=== PATIENT | male | born 1990 ===

== ENCOUNTER 2020-09-14 17:06 | Emergency (ER) | payer SELFPAY ==
[2020-09-14 17:55] VITALS: BP 111/83; PULSE 98; RESP 18; TEMP 36.8; O2SAT 98
[2020-09-14 18:22] VITALS: BP 111/83; PULSE 84; RESP 18; TEMP 36.8; O2SAT 98; BMI 36.9
--- NOTE | 2020-09-14 18:22 | ED.SKABFB ---
HPI - Skin/Abscess/Foreign Bdy General Chief complaint: Skin/Abscess/Foreign Body Stated complaint: Abscess Time Seen by Provider: 09/14/20 18:22 Source: patient Mode of arrival: ambulatory Limitations: no limitations History of Present Illness HPI narrative: Patient is a 30-year-old male with a past medical history of previous abscesses, presents today complaining of an abscess on his right groin that is been there for a few days. He has tried putting warm compresses on it and said it is was starting to leak but is still intact. Denies fever chills. After discussion including how incision and drainage is the gold standard treatment for an abscess, patient is refusing an I&D, nursing was in the room for the conversation, he is asking for strictly antibiotics but says he will continue to use warm compresses and try to express at home. Related Data Allergies Allergy/AdvReac Type Severity Reaction Status Date / Time No Known Allergies Allergy Verified 09/14/20 18:22 [No Known Allergies*] Review of Systems Review of Systems: Yes all other systems are reviewed and are negative PMFSH Past Medical History Medical History (Updated 09/14/20 @ 18:24 by Aria Ruiz) Asthma Social History Social History Advance Directives: No Advance Directives Information Provided: No Physical Exam Vital Signs: Vital Signs: Vital Signs Temp Pulse Resp BP Pulse Ox 09/14/20 17:55 98.2 F 98 18 111/83 98 Const: General: cooperative, healthy appearing, comfortable and no acute distress Orientation/consciousness: patient oriented x3 Eyes: General: appearance normal, both eyes and all related structures Neck: Neck: Yes normal visual inspection Resp: Effort & Inspection: normal respiratory effort and able to speak in complete sentences Skin: General skin exam: other ( 3 cm x 2cm fluctuant abscess on right groin area, no cellulitis noted) Lesions: lesion noted Rashes: no rashes Trauma: no lacerations or abrasions Neuro: General: patient oriented x3
== END 2020-09-14 19:12 | disposition home or self-care (01) ==
PROVIDERS: Emergency Provider Emergency Medicine
DX: L02.214 Cutaneous abscess of groin (principal)
CPT/HCPCS: 99283

== ENCOUNTER 2020-12-14 09:56 | Emergency (ER) | payer SELFPAY ==
[2020-12-14 10:12] VITALS: BP 112/68; PULSE 77; RESP 16; TEMP 36.9; O2SAT 99; BMI 35.6
--- NOTE | 2020-12-14 10:17 | XR_ITS ---
EXAMINATION: XR TIBIA AND FIBULA, LEFT CLINICAL INFORMATION: Infection. Possible osteomyelitis. COMPARISON: None TECHNIQUE: AP x2 and lateral x2 views of the left lower leg are obtained for a total of 4 views. FINDINGS: There is no fracture or dislocation. The bony mineralization appears normal. There is no destructive process or periostitis. There is no gas tracking in the soft tissues. There are 3 coarse calcifications in the soft tissues just anterior to the mid lower leg on lateral view. XR/XR tibia fibula LT 2V IMPRESSION: No bony destructive process. No periostitis.
[2020-12-14] MEDS: cephALEXin 500 MG CAPSULE PO (10:26)
[2020-12-14] MEDS: Lidocaine HCl 1 % MPF 5 ML VIAL SUBCUT ×2 (11:29)
--- NOTE | 2020-12-14 12:27 | PC.NURSE ---
monster ron in to assess, perform i&d, pack wound, rn applied gauze/gauze wrap to area and sent routine cx for testing
--- NOTE | 2020-12-14 12:29 | ED.LOWEXIN ---
HPI - Extremity Injury (Lower) General Chief Complaint: Extremity Injury, Lower Stated Complaint: leg injury Time Seen by Provider: 12/14/20 10:17 History of Present Illness HPI Narrative: Patient complains of left lower leg redness pain swelling after hitting it with an object at home 3 days ago, started with redness then now has developed into of painful swollen area, no fever no chills Related Data Previous Rx's Medication Instructions Recorded cephalexin [Keflex] 500 mg PO TID 7 Days #21 cap 09/14/20 cephalexin [Keflex] 500 mg PO QID 7 Days #28 cap 12/14/20 doxycycline hyclate 100 mg PO BID 7 Days #14 cap 12/14/20 ibuprofen 600 mg PO Q6H PRN #20 tab 12/14/20 oxycodone-acetaminophen [Percocet] 1 tab PO Q6H PRN #10 tab 12/14/20 Allergies Allergy/AdvReac Type Severity Reaction Status Date / Time No Known Allergies Allergy Verified 09/14/20 18:22 [No Known Allergies*] Review of Systems Review of Systems: No fever no chills no dizziness no weakness no shortness of breath no chest pain no nausea no vomiting no posterior leg pain no calf pain no calf swelling Yes all other systems are reviewed and are negative PMFSH Past Medical History Source: nursing notes reviewed Medical History Asthma Social History Social History Smoked in Last 30 Days: No Use of substances other than those prescribed or required for medical reasons: Yes Substance Use Type: Marijuana Substance Use Frequency: Daily Last Used Substance: Hours (ago) Any prior treatment program specific to substance use: No Advance Directives: No Advance Directives Information Provided: No Physical Exam Vital Signs: Vital Signs: Last Vital Signs Temp 98.5 F 12/14/20 10:12 Pulse 77 12/14/20 10:12 Resp 16 12/14/20 10:12 BP 112/68 12/14/20 10:12 Pulse Ox 99 12/14/20 10:12 Body Mass Index 35.6 General appearance is no acute distress, comfortable relaxed and cooperative Head is normocephalic atraumatic Neck is supple Respiratory no distress Extremities the left pretibial area midway between knee and ankle anterior lower leg has a an area of fluctuance tenderness and redness, no lymphangitis, no discharge from wound, knee and ankle are fully mobile with full range of motion and patient can bear weight easily, neurovascular intact distal Other extremities are normal Neuro no focal deficit Course Course Course Narrative: Procedure note for left leg abscess Left lower leg area of cellulitis with central abscess in the pretibial area of the leg is cleansed with Betadine Anesthesia is 10 cc of 1% lidocaine A small incision was made with copious pus expressed from the area and decompression of the swelling Area was probed with forceps for loculations and packing was placed Dressing was applied Discharge Plan Discharge Clinical Impression: Abscess Cellulitis Qualifiers: Site of cellulitis: extremity Site of cellulitis of extremity: lower extremity Laterality: left Qualified Code(s): L03.116 - Cellulitis of left lower limb Patient Disposition: Home, Self-Care Additional Instructions: Return to ER in 2 days for wound check and packing removal Return any time for worse pain and swelling, spreading redness, fever, any sign of worse infection or any concerns Prescriptions: New doxycycline hyclate 100 mg capsule 100 mg PO BID 7 Days Qty: 14 RF: 0 ibuprofen 600 mg tablet 600 mg PO Q6H PRN (Reason: pain) Qty: 20 RF: 0 cephalexin [Keflex] 500 mg capsule 500 mg PO QID 7 Days Qty: 28 RF: 0 oxycodone-acetaminophen [Percocet] 5-325 mg tablet 1 tab PO Q6H PRN (Reason: pain) Qty: 10 RF: 0 No Action cephalexin [Keflex] 500 mg capsule 500 mg PO TID 7 Days Qty: 21 RF: 0 Stand Alone Forms: Work/School Release
== END 2020-12-14 12:35 | disposition home or self-care (01) ==
PROVIDERS: Emergency Provider Emergency Medicine Emergency Medical Services
DX: L03.116 Cellulitis of left lower limb (principal); S80.812A Abrasion, left lower leg, initial encounter; M79.662 Pain in left lower leg; F12.90 Cannabis use, unspecified, uncomplicated; Z79.899 Other long term (current) drug therapy; Z23 Encounter for immunization
CPT/HCPCS: 73590; 87071; 87147; 87205; 90471; 90715; 99283; 99284

== ENCOUNTER 2021-12-08 19:35 | Emergency (ER) | payer OTHER, SELFPAY ==
--- NOTE | ~2021-12-08 | XR_ITS ---
EXAMINATION: XR HAND, RIGHT CLINICAL INFORMATION: Injury to the second digit. COMPARISON: None TECHNIQUE: Three views of the right hand. FINDINGS: There is a small chip fracture of the distal tuft of the distal phalange of the index finger. Fracture fragment measures approximately 4 x 2 mm and is displaced radially. Fracture fragment is from the ulnar tip of the bone. XR/XR hand RT 2V IMPRESSION: Fracture of the distal tuft of the distal phalange of the index finger.
[2021-12-08 19:38] VITALS: BP 123/70; PULSE 68; RESP 18; TEMP 35.9; O2SAT 97; BMI 33.3
--- NOTE | 2021-12-08 21:02 | ED.WOUNDLAC ---
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 finger between the belt and julisa just prior to arrival came with laceration of the distal part of the right index finger Related Data Previous Rx's Medication Instructions Recorded cephalexin 500 mg capsule (Keflex) 500 mg PO TID 7 Days #21 cap 09/14/20 cephalexin 500 mg capsule (Keflex) 500 mg PO QID 7 Days #28 cap 12/14/20 doxycycline hyclate 100 mg capsule 100 mg PO BID 7 Days #14 cap 12/14/20 ibuprofen 600 mg tablet 600 mg PO Q6H PRN #20 tab 12/14/20 oxycodone-acetaminophen 5 mg-325 1 tab PO Q6H PRN #10 tab 12/14/20 mg tablet (Percocet) amoxicillin 875 mg-potassium 1 tab PO BID #20 tab 12/08/21 clavulanate 125 mg tablet (Augmentin) ibuprofen 600 mg tablet 600 mg PO Q6H PRN #20 tab 12/08/21 Allergies Allergy/AdvReac Type Severity Reaction Status Date / Time No Known Allergies Allergy Verified 09/14/20 18:22 [No Known Allergies*] Review of Systems Review of Systems: Yes all other systems are reviewed and are negative PMFSH Past Medical History Medical History Asthma Social History Social History Substance Use Type: Marijuana Advance Directives: No Advance Directives Information Provided: Yes Physical Exam Vital Signs: Vital Signs: Last Vital Signs Temp 96.7 F L 12/08/21 19:38 Pulse 68 12/08/21 19:38 Resp 18 12/08/21 19:38 BP 123/70 12/08/21 19:38 Pulse Ox 97 12/08/21 19:38 BMI result Body Mass Index 33.3 Const: General: no acute distress and well developed Extrem: Hand/finger images: 1. Deep laceration at the base of distal phalanx of right index finger sensation intact flexion of distal phalanx is normal unable to dorsiflex the distal phalanx MDM - Wound/Laceration MDM Narrative Medical decision making narrative: Patient deep laceration with likely laceration extensor digitorum superficialis with fracture of the distal phalanx laceration was sutured advised to follow-up with hand surgeon Imaging Data r hand xray: Radiologist's impression: XR/XR hand RT 2V IMPRESSION: Fracture of the distal tuft of the distal phalange of the index finger. Procedures Laceration Laceration 1: Site: hand (Right index finger) Side (If applicable): right Description: linear Depth: simple, single layer Local Anesthetic: lidocaine 1% Amount of anesthesia used (mL): 5 Pre-repair: wound explored, irrigated extensively and deep structures intact Skin layer closed with: nylon Size (cm): 5-0 Number of sutures: 15 Technique: simple, interrupted Discharge Plan Discharge Clinical Impression: Laceration Patient Disposition: Home, Self-Care Instructions: Finger Laceration (ED) Additional Instructions: Local care as advised Suture removal in 10 days Antibiotic as advised to avoid infection Report to the ER if increased pain / swelling of the finger Prescriptions: New amoxicillin-pot clavulanate [Augmentin] 875-125 mg tablet 1 tab PO BID Qty: 20 RF: 0 ibuprofen 600 mg tablet 600 mg PO Q6H PRN (Reason: pain) Qty: 20 RF: 0 No Action cephalexin [Keflex] 500 mg capsule 500 mg PO TID 7 Days Qty: 21 RF: 0 doxycycline hyclate 100 mg capsule 100 mg PO BID 7 Days Qty: 14 RF: 0 ibuprofen 600 mg tablet 600 mg PO Q6H PRN (Reason: pain) Qty: 20 RF: 0 cephalexin [Keflex] 500 mg capsule 500 mg PO QID 7 Days Qty: 28 RF: 0 oxycodone-acetaminophen [Percocet] 5-325 mg tablet 1 tab PO Q6H PRN (Reason: pain) Qty: 10 RF: 0 Interventions: ED Discharge Assessment Last Done: 12/08/21 21:25 Discharge Date/Time: 12/08/21 21:28
[2021-12-08] MEDS: Ibuprofen 600 MG TABLET PO (21:08)
[2021-12-08] MEDS: Amoxicillin/Potassium Clav 875 MG TABLET PO (21:08)
== END 2021-12-08 21:28 | disposition home or self-care (01) ==
PROVIDERS: Emergency Provider Internal Medicine
DX: S61.210A Laceration without foreign body of right index finger without damage to nail, initial encounter (principal); S62.660B Nondisplaced fracture of distal phalanx of right index finger, initial encounter for open fracture; W24.1XXA Contact with transmission devices, not elsewhere classified, initial encounter; Y93.89 Activity, other specified; Y92.513 Shop (commercial) as the place of occurrence of the external cause; Y99.0 Civilian activity done for income or pay
CPT/HCPCS: 12002; 73120; 99284

== ENCOUNTER 2021-12-16 19:58 | Emergency (ER) | payer OTHER, SELFPAY ==
[2021-12-16 20:09] VITALS: BP 112/57; PULSE 80; TEMP 36.4; O2SAT 98; BMI 33.6
--- NOTE | 2021-12-16 20:39 | ED.GENADULT ---
HPI - General Adult General Chief complaint: Extremity Problem Stated complaint: removal of stitches Time Seen by Provider: 12/16/21 20:39 Source: patient Mode of arrival: ambulatory Limitations: no limitations History of Present Illness HPI narrative: 31-year-old male presents to the emergency department for suture removal, he tells me has 15 sutures to his right index finger, got them placed a week ago. No fevers, chills or signs of infection, sensation and motor intact. Patient has four days of Augmentin left. 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 It appears as though this was a large laceration and required many sutures for repair. Patient tells me that the area looks significantly better. Onset (ago): day(s) (7) Location: upper extremity (Right index finger.) Radiation: non-radiation Severity: moderate Relieving factors: none Exacerbating factors: none Associated symptoms: denies other symptoms Treatments prior to arrival: none Related Data Previous Rx's Medication Instructions Recorded cephalexin 500 mg capsule (Keflex) 500 mg PO TID 7 Days #21 cap 09/14/20 cephalexin 500 mg capsule (Keflex) 500 mg PO QID 7 Days #28 cap 12/14/20 doxycycline hyclate 100 mg capsule 100 mg PO BID 7 Days #14 cap 12/14/20 ibuprofen 600 mg tablet 600 mg PO Q6H PRN #20 tab 12/14/20 oxycodone-acetaminophen 5 mg-325 1 tab PO Q6H PRN #10 tab 12/14/20 mg tablet (Percocet) amoxicillin 875 mg-potassium 1 tab PO BID #20 tab 12/08/21 clavulanate 125 mg tablet (Augmentin) ibuprofen 600 mg tablet 600 mg PO Q6H PRN #20 tab 12/08/21 amoxicillin 875 mg-potassium 1 tab PO BID 4 Days #8 tab 12/16/21 clavulanate 125 mg tablet (Augmentin) Allergies Allergy/AdvReac Type Severity Reaction Status Date / Time No Known Allergies Allergy Verified 09/14/20 18:22 [No Known Allergies*] Review of Systems Review of Systems: Constitutional : No Fever, No Chills, Cardiovascular : No Chest Pain, No SOB Respiratory : No Dyspnea Gastrointestinal : No abdominal pain Musculoskeletal : No Joint Swelling Skin : No rash, + skin laceration Neuro : No Weakness, No Numbness Psych : No SI/HI Yes all other systems are reviewed and are negative [facility] Past Medical History Attestation statement: The following information was validated with the patient. Source: old records reviewed and nursing notes reviewed Medical History Asthma Social History Social History Substance Use Type: Marijuana Advance Directives: No Physical Exam Vital Signs: Vital Signs: Last Vital Signs Temp 97.6 F 12/16/21 20:09 Pulse 80 12/16/21 20:09 BP 112/57 L 12/16/21 20:09 Pulse Ox 98 12/16/21 20:09 BMI result Body Mass Index 33.6 VSS Appearance: Alert.? Oriented X3.? No acute distress.? Head: Normocephalic, atraumatic, no step-offs or deformities Eyes: Pupils equal, round and reactive to light.? ENT: Pharynx normal.? Neck: Normal inspection.? Neck supple.? CVS: Normal heart rate and rhythm.? Pulses normal.? Respiratory: No respiratory distress.? Breath sounds normal.? Abdomen: Soft and nontender.? Skin: Skin warm and dry.? Normal skin color.? Normal skin turgor.? Extremities: No lower extremity edema.? No calf ttp. 5/5 strength to bilateral upper and lower extremities + nicely healed laceration to the right index finger, no overlying skin changes, no signs of acute infection, no cellulitis or purulent discharge from the area. No pain with flexion or extension of b/l fingers and or wrists. + Swollen right index finger. Back: No midline tenderness, no C-spine tenderness, full range of motion, no CVA tenderness bilaterally Neuro: Oriented X 3.? No motor deficit.? No sensory deficit. Course Reevaluation(s) Reevaluation #1: I successfully removed 13 sutures from the right index finger however I left 2 sutures in when I removed 2 sutures from the ventral aspect of the hand it appeared as though the wound was starting to dehice, so I decided to leave the remaining to in. I will place some Dermabond to the area. Sensation and motor intact. He should follow up with Ortho/Hand surgeon. Dr. Jimenez, recommends placing the patient's finger in a splint. I have also reached out to Shavon SALVADOR. Time: 20:44 Reevaluation #2: TT Shavon, who also agrees with me that this does not appear to be infected however, does require prompt follow-up by Orthopedics/Hand surgeon. I have made this very clear to the patient and have given him information about discharge. This is likely poor wound healing. History and physical examination not consistent with tenosynovitis. Wound does not appear to be infected. Patient tells me he will follow up with Orthopedics/Hand surgery tomorrow or the day after. Time: 21:20 Medical Decision Making MDM Narrative Medical decision making narrative: 2042 31-year-old male presents to the emergency department for suture removal, he had 15 sutures history is right index finger about a week ago. No signs of infection. No complaints. Physical exam shows proper wound healing to the right index finger, with good sensation and motor to bilateral upper extremities in all fingers. Capillary refill less than 2 seconds. No signs of infection. Plan at this time is to remove 15 sutures. Medical Records Medical records reviewed: Yes I reviewed the patient's medical records. Lab Data Lab results reviewed: Yes I reviewed the patient's lab results. Critical Care Time Critical Care Time Critical Care Time: No Discharge Plan Discharge Clinical Impression: Encounter for removal of sutures Patient Disposition: Home, Self-Care Instructions: Stitches Removal (ED) Additional Instructions: Follow-up with Orthopedics or Hand tomorrow! This is very important. Take your medications as prescribed. Please finish antibiotics and do not miss any doses. Follow-up with your primary care provider this week. Return to the emergency department with new or worsening symptoms. Return with any signs of infection such as fevers, chills overlying skin changes or drainage from the site. Please follow-up with your primary care provider for evaluation of wound. In case of emergency call 911 Prescriptions: New amoxicillin-pot clavulanate [Augmentin] 875-125 mg tablet 1 tab PO BID 4 Days Qty: 8 RF: 0 No Action cephalexin [Keflex] 500 mg capsule 500 mg PO TID 7 Days Qty: 21 RF: 0 doxycycline hyclate 100 mg capsule 100 mg PO BID 7 Days Qty: 14 RF: 0 ibuprofen 600 mg tablet 600 mg PO Q6H PRN (Reason: pain) Qty: 20 RF: 0 cephalexin [Keflex] 500 mg capsule 500 mg PO QID 7 Days Qty: 28 RF: 0 oxycodone-acetaminophen [Percocet] 5-325 mg tablet 1 tab PO Q6H PRN (Reason: pain) Qty: 10 RF: 0 amoxicillin-pot clavulanate [Augmentin] 875-125 mg tablet 1 tab PO BID Qty: 20 RF: 0 ibuprofen 600 mg tablet 600 mg PO Q6H PRN (Reason: pain) Qty: 20 RF: 0 Referrals: Luis Manuel Harmon MD [Physician] - 2 days Physician,None [Primary Care Provider] - 2 days Ermelinda Anderson MD [Physician] - 1 day Stand Alone Forms: Work/School Release
== END 2021-12-16 21:35 | disposition home or self-care (01) ==
PROVIDERS: Emergency Provider Internal Medicine
DX: Z48.02 Encounter for removal of sutures (principal); Z79.899 Other long term (current) drug therapy
CPT/HCPCS: 99283

== ENCOUNTER 2021-12-19 08:43 | Outpatient (REF) | payer OTHER, SELFPAY ==
--- NOTE | ~2021-12-19 | XR_ITS ---
EXAMINATION: XR hand RT min 3V CLINICAL INFORMATION: Pain COMPARISON: Hand radiographs 12/08/2021 TECHNIQUE: 3 views of the hand XR/XR hand RT min 3V FINDINGS/IMPRESSION: Redemonstration of the transversely oriented displaced fracture of the tuft of the second distal phalanx, which appears minimally more displaced when compared with priors. No periosteal reaction or bony callus formation. Joint spaces are maintained. No cortical erosion. Soft tissue swelling is noted about the second digit.
== END 2021-12-19 08:44 | disposition home or self-care (01) ==
LOC: HO.HOSX 08:43
PROVIDERS: Visit Provider Orthopaedic Surgery
DX: M79.641 Pain in right hand (principal); S62.630B Displaced fracture of distal phalanx of right index finger, initial encounter for open fracture; S63.632A Sprain of interphalangeal joint of right middle finger, initial encounter; W31.89XA Contact with other specified machinery, initial encounter; Y93.89 Activity, other specified; Y92.59 Other trade areas as the place of occurrence of the external cause; Y99.8 Other external cause status; J45.909 Unspecified asthma, uncomplicated
CPT/HCPCS: 73130; 99202

== ENCOUNTER → 2021-12-26 13:10 | Outpatient (BNVA) | payer OTHER, SELFPAY | PROVIDERS: Visit Provider Physician Assistant | DX: S61.310D Laceration without foreign body of right index finger with damage to nail, subsequent encounter (principal) | CPT/HCPCS: 99212 ==

== ENCOUNTER 2023-03-10 10:54 | Emergency (ER) | payer SELFPAY ==
--- NOTE | 2023-03-10 11:10 | ED.LOWEXIN ---
HPI - Extremity Injury (Lower) General Chief Complaint: Skin/Abscess/Foreign Body Stated Complaint: R ankle swelling Time Seen by Provider: 03/10/23 11:15 Source: patient Mode of arrival: ambulatory Limitations: no limitations History of Present Illness HPI Narrative: 32 yo male presents to the ER for evaluation of right lower leg redness and swelling that he noticed 3 days ago. 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 He states the area proximal to his ankle is red and warm, it has become more swollen. No known bites or other trauma. No ankle pain or swelling. No fevers. He reports pain with palpation and ambulation. MD complaint: leg injury Onset (ago): day(s) (3) Type of Injury: unknown Place: work Severity: moderate Relieving factors: rest Exacerbating factors: weight bearing and palpation Associated symptoms: swelling, ambulatory and other (erythema and warmth) Other symptoms: none Related Data Previous Rx's Medication Instructions Recorded cephalexin 500 mg capsule (Keflex) 500 mg PO TID 7 days #21 caps 09/14/20 cephalexin 500 mg capsule (Keflex) 500 mg PO QID 7 days #28 caps 12/14/20 doxycycline hyclate 100 mg capsule 100 mg PO BID 7 days #14 caps 12/14/20 ibuprofen 600 mg tablet 600 mg PO Q6H PRN pain #20 tabs 12/14/20 oxycodone-acetaminophen 5 mg-325 1 tab PO Q6H PRN pain #10 tabs 12/14/20 mg tablet (Percocet) amoxicillin 875 mg-potassium 1 tab PO BID #20 tabs 12/08/21 clavulanate 125 mg tablet (Augmentin) ibuprofen 600 mg tablet 600 mg PO Q6H PRN pain #20 tabs 12/08/21 amoxicillin 875 mg-potassium 1 tab PO BID 4 days #8 tabs 12/16/21 clavulanate 125 mg tablet (Augmentin) cephalexin 500 mg capsule 500 mg PO Q6H 7 days #28 caps 03/10/23 doxycycline monohydrate 100 mg 100 mg PO BID #14 caps 03/10/23 capsule Allergies Allergy/AdvReac Type Severity Reaction Status Date / Time No Known Allergies Allergy Verified 12/19/21 12:25 [No Known Allergies*] Review of Systems Review of Systems: Yes all other systems are reviewed and are negative [facility] Past Medical History Medical History Asthma Social History Social History (Updated 12/26/21 @ 13:23 by Mundo Moody) Substance Use Type: Marijuana Advance Directives: No Advance Directives Information Provided: Yes Current occupational status: employed Current occupation: [employer] Physical Exam Vital Signs: Vital Signs: Last Vital Signs Temp 98.3 F 03/10/23 11:11 Pulse 80 03/10/23 11:11 Resp 18 03/10/23 11:11 BP 122/84 03/10/23 11:11 Pulse Ox 98 03/10/23 11:11 O2 Del Method Room Air 03/10/23 11:11 BMI result Body Mass Index 33.6 Appearance: Alert. Oriented X3. No acute distress. HEENT: normal inspection CVS: Normal heart rate and rhythm. Pulses normal. Respiratory: No respiratory distress. Skin: Skin warm and dry. Normal skin color. Normal skin turgor. No rashes. Extremities: right lower extremity with erythema, warmth and tenderness to the distal lower leg, no ankle involvement. no calf tenderness or swelling. Neuro: Oriented X 3. No motor deficit. No sensory deficit. Medical Decision Making Medical Decision Making MDM Narrative: 32 yo male presenting to the ER with RLE redness, swelling and pain x3 days. No specific trauma. Exam and clinical presentation are consistent with cellulitis. No clinical evidence of DVT, area is not circumfrential. Will start on abx and have him f/u with PCP. Stable for d/c home. Differential Diagnosis Differential Diagnoses: The differential diagnosis associated with the presentation includes cellulitis, bug bite, Lyme, trauma, less likely DVT, thrombbophelbitis Prescription Management I considered prescription management with: Pain Medication and Antibiotic Critical Care Time Critical Care Time Critical Care Time: No Discharge Plan Discharge Clinical Impression: Cellulitis Patient Disposition: Home, Self-Care Instructions: Cellulitis (DC) Additional Instructions: Take the prescribed antibiotics as directed, complete the entire course and do not miss any doses. Use warm compresses several times per day and elevate your leg If your redness and warmth are getting worse despite 2 days of antibiotics, come back to the ER for further evaluation. Follow up with your doctor Prescriptions: New cephalexin 500 mg capsule 500 mg PO Q6H 7 Days Qty: 28 0RF doxycycline monohydrate 100 mg capsule 100 mg PO BID Qty: 14 0RF No Action cephalexin [Keflex] 500 mg capsule 500 mg PO TID 7 Days Qty: 21 0RF doxycycline hyclate 100 mg capsule 100 mg PO BID 7 Days Qty: 14 0RF ibuprofen 600 mg tablet 600 mg PO Q6H PRN (Reason: pain) Qty: 20 0RF cephalexin [Keflex] 500 mg capsule 500 mg PO QID 7 Days Qty: 28 0RF oxycodone-acetaminophen [Percocet] 5-325 mg tablet 1 tab PO Q6H PRN (Reason: pain) Qty: 10 0RF Rx Instructions: Narcotic may cause drowsiness, no driving for 6 hours after taking, home use only amoxicillin-pot clavulanate [Augmentin] 875-125 mg tablet 1 tab PO BID Qty: 20 0RF ibuprofen 600 mg tablet 600 mg PO Q6H PRN (Reason: pain) Qty: 20 0RF amoxicillin-pot clavulanate [Augmentin] 875-125 mg tablet 1 tab PO BID 4 Days Qty: 8 0RF Stand Alone Forms: Work/School Release Interventions: ED Discharge Assessment Last Done: 03/10/23 11:13 Discharge Date/Time: 03/10/23 11:17
[2023-03-10 11:11] VITALS: BP 122/84; PULSE 80; RESP 18; TEMP 36.8; O2SAT 98; BMI 33.6
--- NOTE | 2023-03-10 11:14 | PC.NURSE ---
EVAL AND DC BY PIT PA
== END 2023-03-10 11:17 | disposition home or self-care (01) ==
LOC: HO.ED 11:16
PROVIDERS: Emergency Provider Emergency Medicine
DX: L03.115 Cellulitis of right lower limb (principal); M25.571 Pain in right ankle and joints of right foot
CPT/HCPCS: 99282; 99283

== ENCOUNTER 2024-11-10 14:46 | Emergency (ER) | payer OTHER, SELFPAY ==
[2024-11-10 14:49] VITALS: BP 114/79; PULSE 83; RESP 16; TEMP 37; O2SAT 97; BMI 37.8
--- NOTE | 2024-11-10 14:51 | ED.GENADULT ---
HPI - General Adult General Chief complaint: Eye Problems Stated complaint: R Eye Injury Work Related Time Seen by Provider: 11/10/24 16:38 Source: patient and RN notes reviewed Mode of arrival: ambulatory Limitations: no limitations History of Present Illness ED Provider: Arlen Cantrell PA-C HPI narrative: This is a 34-year-old male, with no known medical problems, who presents emergency department complaints of right eye pain. Patient states that while he was working, a plastic plug fell and landed into his right eye. He did not have pain initially in his eye however reports that over the last several hours he has developed slight pain, and tearing. He denies any changes in vision. Denies severe headache. Denies any contact usage. No other complaints or concerns at this time. MD complaint: Right eye pain Onset (ago): day(s) Location: eyes Radiation: non-radiation Pain Consistency: constant Relieving factors: none Exacerbating factors: none Associated symptoms: denies other symptoms Treatments prior to arrival: none Related Data Previous Rx's ?Medication ?Instructions ?Recorded cephalexin 500 mg capsule (Keflex) 500 mg PO TID 7 days #21 caps 09/14/20 cephalexin 500 mg capsule (Keflex) 500 mg PO QID 7 days #28 caps 12/14/20 doxycycline hyclate 100 mg capsule 100 mg PO BID 7 days #14 caps 12/14/20 ibuprofen 600 mg tablet 600 mg PO Q6H PRN pain #20 tabs 12/14/20 oxycodone-acetaminophen 5 mg-325 1 tab PO Q6H PRN pain #10 tabs 12/14/20 mg tablet (Percocet) amoxicillin 875 mg-potassium 1 tab PO BID #20 tabs 12/08/21 clavulanate 125 mg tablet (Augmentin) ibuprofen 600 mg tablet 600 mg PO Q6H PRN pain #20 tabs 12/08/21 amoxicillin 875 mg-potassium 1 tab PO BID 4 days #8 tabs 12/16/21 clavulanate 125 mg tablet (Augmentin) cephalexin 500 mg capsule 500 mg PO Q6H 7 days #28 caps 03/10/23 doxycycline monohydrate 100 mg 100 mg PO BID #14 caps 03/10/23 capsule erythromycin 5 mg/gram (0.5 %) eye 0.5 inch ophthalmic (eye) QID 7 11/10/24 ointment days #3.5 grams Allergies Allergy/AdvReac Type Severity Reaction Status Date / Time No Known Allergies Allergy Verified 11/10/24 14:50 [No Known Allergies*] Review of Systems Review of Systems: Yes all other systems are reviewed and are negative Constitutional: Constitutional: Reports as per [facility] Past Medical History Medical History Asthma Social History Social History (Updated 12/26/21 @ 13:23 by Mundo Moody) Substance Use Type: Marijuana Advance Directives: No Advance Directives Information Provided: No Current occupational status: employed Current occupation: [employer] Physical Exam ED Vital Signs: Vital Signs - 24 hr 11/10/24 14:49 11/10/24 17:25 Temperature 98.6 F 98.2 F Pulse Rate 83 72 Respiratory Rate 16 16 Blood Pressure 114/79 133/82 Pulse Oximetry 97 96 Oxygen Delivery Method Room Air Room Air BMI result Body Mass Index 37.8 Const General: cooperative, comfortable and no acute distress Orientation/consciousness: patient oriented x3 Limitations: no limitations HENRI Head: Yes normal to inspection, Yes normocephalic and Yes atraumatic Ears: hearing grossly normal bilaterally General nose exam: Normal external nose present Face and sinus: Yes normal facial exam Mouth: Normal oral and palatal mucosa present, oropharynx normal and moist mucous membranes Throat: Yes posterior oropharynx normal Eyes Other: Right eye conjunctiva is mildly injected, with tearing noted. Fluorescein stain was performed, there is a 1 mm punctate corneal abrasion noted within the iris at approximately 7:00 a.m. position. Negative Trina sign. No periorbital swelling. General: appearance normal, both eyes and all related structures Eyelids: Yes eyelids normal Conjunctivae: conjunctivae normal Sclerae: sclerae normal Pupils: Equal, round and reactive pupils present EOM: EOMs intact bilaterally Neck Neck: Yes normal visual inspection, Yes full ROM and Yes no lymphadenopathy Lymphatic: no lymphadenopathy noted Chest Chest palpation & inspection: normal inspection of the chest Resp Effort & Inspection: normal respiratory effort and able to speak in complete sentences Cardio Rate: regular rate Rhythm: regular rhythm GI Inspection: Yes normal to inspection Skin General skin exam: no rashes or lesions noted Trauma: no lacerations or abrasions Wounds: no wounds Neuro General: patient oriented x3 and moves all extremities Cranial nerves: Yes Equal, round and reactive pupils present Extrem General: Yes normal to inspection Right upper extremity: normal to inspection Left upper extremity: normal to inspection Right lower extremity: normal to inspection Left lower extremity: normal to inspection Course Course Course Narrative: RME, this is a rapid medical exam performed by Sagar Haas please refer to primary provider for complete H&P- 34-year-old male presents for evaluation of right eye pain. 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 He reports a piece of plastic fell off the car he was working on and struck him in the right eye. He reports there was no metal. He felt well initially. About 2 hours later he developed severe pain and watery eye. Patient will require focused examination of the eye. There are no pupillary defects that there is faint conjunctival injection in triage Medications Administered Discontinued Medications Generic Name Dose Route Start Last Admin Trade Name Freq PRN Reason Stop Dose Admin Fluorescein Sodium 1 strip 11/10/24 14:52 11/10/24 16:41 Fluorescein Sodium Strip EYE-RIGHT 11/10/24 14:53 1 strip ONCE ONE Administration Tetracaine HCl 3 drop 11/10/24 14:52 11/10/24 16:41 Tetracaine Hcl/Pf 0.5% Oph Alessandra 4 Ml Drops EYE-RIGHT 11/10/24 14:53 3 drop ONCE ONE Administration Medical Decision Making Medical Decision Making [facility] Narrative: This is a 34-year-old male who presents emergency department with complaints of right eye tearing, and redness after being hit in the right eye at work. On arrival, vital signs within normal limits. Right conjunctiva is injected, there is a corneal abrasion noted on fluorescein stain. Negative Trina sign. The trauma was low impact, was a plastic plug that struck him in the eye. Visual acuity intact. He does not wear contact lenses. Given corneal abrasion noted on exam, will treat with course of erythromycin ointment. Given strict return precautions. He understands and agrees with plan. Patient stable for discharge Differential Diagnosis Differential Diagnoses: The differential diagnosis associated with the presentation includes Corneal abrasion, laceration, global rupture-unlikely, conjunctivitis Discharge Plan Discharge Clinical Impression: Corneal abrasion, right Qualifiers: Encounter type: initial encounter Qualified Code(s): S05.01XA - Injury of conjunctiva and corneal abrasion without foreign body, right eye, initial encounter Patient Disposition: Home, Self-Care Instructions: Corneal Abrasion (ED) Additional Instructions: You were seen in the emergency department after injuring your right eye. You have a scratch on the surface of your right eye. You need to use antibiotic ointment for the next 7 days, finish the entire course. If you develop any new or worsening symptoms including but not limited to severe eye pain, loss of vision, please seek emergent care. It is also important to have a primary care physician, I am giving your referral to the [facility]. I am also giving you a referral to the eye physician, Dr. López. Prescriptions: New erythromycin 5 mg/gram (0.5 %) ointment 0.5 inch ophthalmic (eye) QID 7 Days Qty: 3.5 0RF No Action cephalexin [Keflex] 500 mg capsule 500 mg PO TID 7 Days Qty: 21 0RF doxycycline hyclate 100 mg capsule 100 mg PO BID 7 Days Qty: 14 0RF ibuprofen 600 mg tablet 600 mg PO Q6H PRN (Reason: pain) Qty: 20 0RF cephalexin [Keflex] 500 mg capsule 500 mg PO QID 7 Days Qty: 28 0RF oxycodone-acetaminophen [Percocet] 5-325 mg tablet 1 tab PO Q6H PRN (Reason: pain) Qty: 10 0RF Rx Instructions: Narcotic may cause drowsiness, no driving for 6 hours after taking, home use only amoxicillin-pot clavulanate [Augmentin] 875-125 mg tablet 1 tab PO BID Qty: 20 0RF ibuprofen 600 mg tablet 600 mg PO Q6H PRN (Reason: pain) Qty: 20 0RF amoxicillin-pot clavulanate [Augmentin] 875-125 mg tablet 1 tab PO BID 4 Days Qty: 8 0RF cephalexin 500 mg capsule 500 mg PO Q6H 7 Days Qty: 28 0RF doxycycline monohydrate 100 mg capsule 100 mg PO BID Qty: 14 0RF Referrals: [facility] [Physician] - Bautista López [Physician] - Stand Alone Forms: Work/School Release Interventions: ED Discharge Assessment Last Done: 11/10/24 18:09 Print Language: Norwegian
[2024-11-10] MEDS: Tetracaine HCl/PF 0.5% Oph Sol 4 ML DROPS 3 DROP EYE-RIGHT (16:41)
[2024-11-10] MEDS: Fluorescein Sodium STRIP 1 STRIP EYE-RIGHT (16:41)
[2024-11-10 17:25] VITALS: BP 133/82; PULSE 72; RESP 16; TEMP 36.8; O2SAT 96
--- NOTE | 2024-11-10 17:30 | PC.NURSE ---
Pt right eye noted to be red/watery. Currently reporting no pain to right eye but reports pain is intermittent, rates it 8/10 when he does have pain.
[2024-11-10 18:09] VITALS: BP 133/82; PULSE 72; RESP 16; TEMP 36.8; O2SAT 96
== END 2024-11-10 18:10 | disposition home or self-care (01) ==
PROVIDERS: Emergency Provider Emergency Medicine Emergency Medical Services
DX: S05.01XA Injury of conjunctiva and corneal abrasion without foreign body, right eye, initial encounter (principal); H57.11 Ocular pain, right eye; W26.8XXA Contact with other sharp object(s), not elsewhere classified, initial encounter; Y93.89 Activity, other specified; Y92.89 Other specified places as the place of occurrence of the external cause; Y99.0 Civilian activity done for income or pay
CPT/HCPCS: 99283; 99284

== ENCOUNTER 2024-12-16 20:01 | Emergency (ER) | payer OTHER, SELFPAY ==
--- NOTE | ~2024-12-16 | US_ITS ---
CLINICAL HISTORY: pain Venous duplex ultrasound left lower extremity Comparison: None Findings: The visualized deep veins are fully compressible with normal Doppler color flow and spectral tracings. Small varicose veins suggested inferior to the knee., Including medial calf soft tissues. Also question mild medial soft tissue fluid as can be seen with edema and cellulitis. Underlying fasciitis not excluded. No well-defined or drainable abscess by ultrasound. IMPRESSION: 1. Negative for left lower extremity deep vein thrombosis. 2. low echogenicity as can be seen with edema or and/or cellulitis of the imaged medial inferior soft tissues. This document has been electronically signed by: Piotr Gordillo MD on 12/16/2024 21:09:23
[2024-12-16 20:12] VITALS: BP 100/61; PULSE 87; RESP 20; TEMP 37.2; O2SAT 97; BMI 26.5
--- NOTE | 2024-12-16 20:15 | ECG_ITS ---
Test Reason : PAIN Blood Pressure : */* mmHG Vent. Rate : 109 BPM Atrial Rate : 109 BPM P-R Int : 136 ms QRS Dur : 110 ms QT Int : 326 ms P-R-T Axes : 46 -3 49 degrees QTcB Int : 439 ms Sinus tachycardia with occasional Premature ventricular complexes Cannot rule out Anterior infarct , age undetermined Abnormal ECG No previous ECGs available Referred By: Jose Haas Electronically Signed By: AZUL CENTENO MD
--- NOTE | 2024-12-16 20:15 | ED_ITS ---
HPI - General Adult General Chief complaint: Extremity Problem Stated complaint: left lower leg swollen/red Time Seen by Provider: 12/16/24 22:06 Related Data Previous Rx's ?Medication ?Instructions ?Recorded cephalexin 500 mg capsule (Keflex) 500 mg PO TID 7 days #21 caps 09/14/20 cephalexin 500 mg capsule (Keflex) 500 mg PO QID 7 days #28 caps 12/14/20 doxycycline hyclate 100 mg capsule 100 mg PO BID 7 days #14 caps 12/14/20 ibuprofen 600 mg tablet 600 mg PO Q6H PRN pain #20 tabs 12/14/20 oxycodone-acetaminophen 5 mg-325 1 tab PO Q6H PRN pain #10 tabs 12/14/20 mg tablet (Percocet) amoxicillin 875 mg-potassium 1 tab PO BID #20 tabs 12/08/21 clavulanate 125 mg tablet (Augmentin) ibuprofen 600 mg tablet 600 mg PO Q6H PRN pain #20 tabs 12/08/21 amoxicillin 875 mg-potassium 1 tab PO BID 4 days #8 tabs 12/16/21 clavulanate 125 mg tablet (Augmentin) cephalexin 500 mg capsule 500 mg PO Q6H 7 days #28 caps 03/10/23 doxycycline monohydrate 100 mg 100 mg PO BID #14 caps 03/10/23 capsule erythromycin 5 mg/gram (0.5 %) eye 0.5 inch ophthalmic (eye) QID 7 11/10/24 ointment days #3.5 grams doxycycline monohydrate 100 mg 100 mg PO BID cellulitis #20 caps 12/16/24 capsule Allergies Allergy/AdvReac Type Severity Reaction Status Date / Time No Known Allergies Allergy Verified 12/16/24 20:15 [No Known Allergies*] [facility] Past Medical History Medical History Asthma Social History Social History Substance Use Type: Marijuana Do you have a plan to hurt others: No Plan Current occupational status: employed Current occupation: [employer]/[place] Physical Exam ED Vital Signs: Vital Signs - 24 hr 12/16/24 20:12 Temperature 98.9 F Pulse Rate 87 Respiratory Rate 20 Blood Pressure 100/61 Pulse Oximetry 97 Oxygen Delivery Method Room Air BMI result Body Mass Index 26.5 Course Course Course Narrative: RME, this is a rapid medical exam performed by Sagar Haas please refer to primary provider for complete H&P- 34-year-old male presents for evaluation of left leg pain and swelling with redness. The patient reports while at work today he noticed a cramping his left thigh. Once he changed after work he noticed redness to his left lower leg and pain to the area. Denies any injury, there were no wounds. He has a remote history of a surgical excision to his left lower calf with scar tissue but there were no recent opening Medications Administered Discontinued Medications Generic Name Dose Route Start Last Admin Trade Name Freq PRN Reason Stop Dose Admin Doxycycline Monohydrate 100 mg 12/16/24 22:21 12/16/24 22:34 Doxycycline Monohydrate 100 Mg Capsule PO 12/16/24 22:22 100 mg ONCE ONE Administration Medical Decision Making Lab Data 12/16/24 20:24 12/16/24 20:24 Labs: Lab Results 12/16/24 Range/Units 20:24 WBC 13.9 H (4.8-10.8) X10*3/uL RBC 4.75 (4.60-5.80) X10*6/uL Hgb 14.0 (14.0-18.0) g/dl Hct 42.3 (42.0-52.0) % MCV 89.1 (80.0-98.0) fL MCH 29.5 (27.0-33.0) pg MCHC 33.1 (31.0-36.0) g/dl RDW 13.2 (11.0-16.0) % Plt Count 207 (160-400) X10*3/uL MPV 10.2 (9.4-12.4) fL Immature Gran % (Auto) 0.4 (0.0-0.4) % Neut % (Auto) 74.2 H (45-73) % Lymph % (Auto) 16.0 L (20-40) % [place] % (Auto) 8.6 (2-11) % Eos % (Auto) 0.4 (0-4) % Baso % (Auto) 0.4 (0-2) % Lymph # (Auto) 2.2 (1.2-4.9) X10*3/uL [place] # (Auto) 1.2 (0.1-1.2) X10*3/uL Eos # (Auto) 0.1 (0.0-0.4) X10*3/uL Baso # (Auto) 0.1 (0.0-0.2) X10*3/uL Abs Immat Gran (auto) 0.05 H (0.00-0.03) X10*3/uL Absolute Neuts (auto) 10.3 H (2.0-8.3) x10*3/uL Absolute Nucleated RBC 0.000 (0.0-0.012) X10*3/uL Nucleated RBC % (auto) 0.0 (0.0-0.2) /100WBC PT 12.5 H (10.9-12.4) SEC INR 1.1 (0.9-1.1) Sodium 140 (135-145) mmol/L Potassium 4.0 (3.3-5.1) mmol/L Chloride 107 (96-108) mmol/L Carbon Dioxide 25 (22-29) mmol/L Anion Gap 12 (12-20) BUN 14 (9-16) mg/dL Creatinine 0.90 (0.5-1.4) mg/dL Estim Creat Clear Calc 128.2 Estimated GFR > 60 Random Glucose 115 (60-115) mg/dL Lactic Acid 1.2 (0.5-2.0) mmol/L Calcium 9.0 (8.4-10.2) mg/dL Total Bilirubin 0.5 (0.0-1.0) mg/dL AST 30 (5-37) U/L ALT 30 (0-40) U/L Alkaline Phosphatase 53 (39-117) U/L Total Protein 8.1 H (6.5-8.0) g/dL Albumin 4.3 (3.5-5.0) g/dL Lipase 8 (8-78) U/L Discharge Plan Discharge Clinical Impression: Cellulitis Patient Disposition: Home, Self-Care Instructions: Cellulitis (ED) Additional Instructions: If you develop fever chills. Redness goes way beyond the margin demarcated. Please come back to the ED. Prescriptions: New doxycycline monohydrate 100 mg capsule 100 mg PO BID Qty: 20 0RF No Action cephalexin [Keflex] 500 mg capsule 500 mg PO TID 7 Days Qty: 21 0RF doxycycline hyclate 100 mg capsule 100 mg PO BID 7 Days Qty: 14 0RF ibuprofen 600 mg tablet 600 mg PO Q6H PRN (Reason: pain) Qty: 20 0RF cephalexin [Keflex] 500 mg capsule 500 mg PO QID 7 Days Qty: 28 0RF oxycodone-acetaminophen [Percocet] 5-325 mg tablet 1 tab PO Q6H PRN (Reason: pain) Qty: 10 0RF Rx Instructions: Narcotic may cause drowsiness, no driving for 6 hours after taking, home use only amoxicillin-pot clavulanate [Augmentin] 875-125 mg tablet 1 tab PO BID Qty: 20 0RF ibuprofen 600 mg tablet 600 mg PO Q6H PRN (Reason: pain) Qty: 20 0RF amoxicillin-pot clavulanate [Augmentin] 875-125 mg tablet 1 tab PO BID 4 Days Qty: 8 0RF cephalexin 500 mg capsule 500 mg PO Q6H 7 Days Qty: 28 0RF doxycycline monohydrate 100 mg capsule 100 mg PO BID Qty: 14 0RF erythromycin 5 mg/gram (0.5 %) ointment 0.5 inch ophthalmic (eye) QID 7 Days Qty: 3.5 0RF Referrals: Physician,Unknown J [Primary Care Provider] - 12/20/24 Print Language: Greek
[2024-12-16 20:38] LABS: MANUAL DIFF FLAG NO
[2024-12-16 20:40] LABS: Basophils Absolute Auto 0.1 X10*3/uL (0.0-0.2); Basophils Percent Auto 0.4 % (0-2); Eosinophils Absolute Auto 0.1 X10*3/uL (0.0-0.4); Eosinophils Percent Auto 0.4 % (0-4); Hematocrit 42.3 % (42.0-52.0); Imm Gran Abs Auto 0.05 X10*3/uL (0.00-0.03); Imm Gran Pct Auto 0.4 % (0.0-0.4); Lymphocytes Absolute Auto 2.2 X10*3/uL (1.2-4.9); Mean Corpuscular HGB Conc 33.1 g/dl (31.0-36.0); Mean Corpuscular Hemoglobin 29.5 pg (27.0-33.0); Mean Corpuscular Volume 89.1 fL (80.0-98.0); Mean Platelet Volume 10.2 fL (9.4-12.4); Monocytes Absolute Auto 1.2 X10*3/uL (0.1-1.2); Monocytes Percent Auto 8.6 % (2-11); Neutrophils Absolute Auto 10.3 x10*3/uL (2.0-8.3); Neutrophils Percent Auto 74.2 % (45-73); Platelet Count 207 X10*3/uL (160-400); Red Blood Count 4.75 X10*6/uL (4.60-5.80); Red Cell Distribution Width 13.2 % (11.0-16.0); White Blood Count 13.9 X10*3/uL (4.8-10.8)
[2024-12-16 20:53] LABS: Lactic Acid 1.2 mmol/L (0.5-2.0)
[2024-12-16 20:55] LABS: Alanine Aminotransferase 30 U/L (0-40); Albumin Level 4.3 g/dL (3.5-5.0); Alkaline Phosphatase 53 U/L (39-117); Anion Gap 12 (12-20); Aspartate Amino Transferase 30 U/L (5-37); Bilirubin Total 0.5 mg/dL (0.0-1.0); Blood Urea Nitrogen 14 mg/dL (9-16); Carbon Dioxide 25 mmol/L (22-29); Chloride 107 mmol/L (96-108); Creatinine Clr Calc Pharmacy 128.2; Estimated Glomerular Filt Rate > 60; Glucose Random 115 mg/dL (60-115); Lipase 8 U/L (8-78); Sodium 140 mmol/L (135-145); Total Protein 8.1 g/dL (6.5-8.0)
[2024-12-16 20:57] LABS: INTERNATIONAL NORM RATIO 1.1 (0.9-1.1); Prothrombin Time 12.5 SEC (10.9-12.4)
--- NOTE | 2024-12-16 22:22 | ED_ITS ---
HPI - Extremity Problem General Chief complaint: Extremity Problem Stated complaint: left lower leg swollen/red Time Seen by Provider: 12/16/24 22:06 History of Present Illness HPI Narrative: Patient is a 34-year-old male presents today with having left leg swelling. Redness to the calf area. Patient from home. No fever no chills. No systemic complaints. History of cellulitis history of abscess in the past. No history of diabetes, peripheral vascular disease. Patient from home. No coughing or congestion or upper respiratory symptoms. No diaphoresis. No allergies to antibiotics. Related Data Previous Rx's ?Medication ?Instructions ?Recorded cephalexin 500 mg capsule (Keflex) 500 mg PO TID 7 days #21 caps 09/14/20 cephalexin 500 mg capsule (Keflex) 500 mg PO QID 7 days #28 caps 12/14/20 doxycycline hyclate 100 mg capsule 100 mg PO BID 7 days #14 caps 12/14/20 ibuprofen 600 mg tablet 600 mg PO Q6H PRN pain #20 tabs 12/14/20 oxycodone-acetaminophen 5 mg-325 1 tab PO Q6H PRN pain #10 tabs 12/14/20 mg tablet (Percocet) amoxicillin 875 mg-potassium 1 tab PO BID #20 tabs 12/08/21 clavulanate 125 mg tablet (Augmentin) ibuprofen 600 mg tablet 600 mg PO Q6H PRN pain #20 tabs 12/08/21 amoxicillin 875 mg-potassium 1 tab PO BID 4 days #8 tabs 12/16/21 clavulanate 125 mg tablet (Augmentin) cephalexin 500 mg capsule 500 mg PO Q6H 7 days #28 caps 03/10/23 doxycycline monohydrate 100 mg 100 mg PO BID #14 caps 03/10/23 capsule erythromycin 5 mg/gram (0.5 %) eye 0.5 inch ophthalmic (eye) QID 7 11/10/24 ointment days #3.5 grams doxycycline monohydrate 100 mg 100 mg PO BID cellulitis #20 caps 12/16/24 capsule Allergies Allergy/AdvReac Type Severity Reaction Status Date / Time No Known Allergies Allergy Verified 12/16/24 20:15 [No Known Allergies*] Review of Systems 2 Review of Systems: Positive redness warmth to the left calf area Yes all other systems are reviewed and are negative PMFSH Past Medical History Attestation statement: The following information was validated with the patient. Medical History Asthma Social History Social History Substance Use Type: Marijuana Do you have a plan to hurt others: No Plan Current occupational status: employed Current occupation: [employer] Physical Exam 2 Vital Signs: Vital Signs: Last Vital Signs Temp 98.9 F 12/16/24 20:12 Pulse 87 12/16/24 20:12 Resp 20 12/16/24 20:12 BP 100/61 12/16/24 20:12 Pulse Ox 97 12/16/24 20:12 O2 Del Method Room Air 12/16/24 20:12 BMI result Body Mass Index 26.5 Appearance: Alert. Oriented X3. No acute distress. Eyes: Pupils equal, round and reactive to light. ENT: Pharynx normal. Neck: Normal inspection. Neck supple. No lymph nodes noted. No crepitus CVS: Normal heart rate and rhythm. Pulses normal. Normal S1 and S2 Respiratory: No respiratory distress. Breath sounds normal. No Wheezing. No rales Abdomen: Soft and nontender. No rigidity. No distention. good BS x4 Skin: Skin warm and dry. Normal skin color. Normal skin turgor. Extremities: Positive area of redness warmth to the left proximal calf area. Approximately 4 cm x 5 cm in size. Red warm to touch. No fluctuance noted. Neurovascular intact to all extremities. No Lacerations. Distal pulses intact sensation intact motor intact Neuro: Oriented X 3. No motor deficit. No sensory deficit. Moving all extermities. No slurred speech Medical Decision Making Medical Decision Making MDM Narrative: Patient well-appearing no history of diabetes. Has a localized area of redness swelling. Patient's labs showed a slightly elevated white count. Lactate was normal there is no evidence for severe sepsis. Patient's vital signs are normal. Electrolytes are unremarkable. Patient's LFTs are normal. Lipase is normal. Doppler of the lower extremity was done. I reviewed radiology's reading of the Doppler which was grossly negative for any acute evidence of DVT. Differential Diagnosis Differential Diagnoses: The differential diagnosis associated with the presentation includes (Cellulitis, DVT, CHF, abscess) Admission/Observation Consideration of admission/observation: Escalation of care including admission/observation considered Lab Data MDM Lab Attestation statement: I reviewed the patient's lab results. 12/16/24 20:24 12/16/24 20:24 Labs: Lab Results 12/16/24 Range/Units 20:24 WBC 13.9 H (4.8-10.8) X10*3/uL RBC 4.75 (4.60-5.80) X10*6/uL Hgb 14.0 (14.0-18.0) g/dl Hct 42.3 (42.0-52.0) % MCV 89.1 (80.0-98.0) fL MCH 29.5 (27.0-33.0) pg MCHC 33.1 (31.0-36.0) g/dl RDW 13.2 (11.0-16.0) % Plt Count 207 (160-400) X10*3/uL MPV 10.2 (9.4-12.4) fL Immature Gran % (Auto) 0.4 (0.0-0.4) % Neut % (Auto) 74.2 H (45-73) % Lymph % (Auto) 16.0 L (20-40) % [place] % (Auto) 8.6 (2-11) % Eos % (Auto) 0.4 (0-4) % Baso % (Auto) 0.4 (0-2) % Lymph # (Auto) 2.2 (1.2-4.9) X10*3/uL [place] # (Auto) 1.2 (0.1-1.2) X10*3/uL Eos # (Auto) 0.1 (0.0-0.4) X10*3/uL Baso # (Auto) 0.1 (0.0-0.2) X10*3/uL Abs Immat Gran (auto) 0.05 H (0.00-0.03) X10*3/uL Absolute Neuts (auto) 10.3 H (2.0-8.3) x10*3/uL Absolute Nucleated RBC 0.000 (0.0-0.012) X10*3/uL Nucleated RBC % (auto) 0.0 (0.0-0.2) /100WBC PT 12.5 H (10.9-12.4) SEC INR 1.1 (0.9-1.1) Sodium 140 (135-145) mmol/L Potassium 4.0 (3.3-5.1) mmol/L Chloride 107 (96-108) mmol/L Carbon Dioxide 25 (22-29) mmol/L Anion Gap 12 (12-20) BUN 14 (9-16) mg/dL Creatinine 0.90 (0.5-1.4) mg/dL Estim Creat Clear Calc 128.2 Estimated GFR > 60 Random Glucose 115 (60-115) mg/dL Lactic Acid 1.2 (0.5-2.0) mmol/L Calcium 9.0 (8.4-10.2) mg/dL Total Bilirubin 0.5 (0.0-1.0) mg/dL AST 30 (5-37) U/L ALT 30 (0-40) U/L Alkaline Phosphatase 53 (39-117) U/L Total Protein 8.1 H (6.5-8.0) g/dL Albumin 4.3 (3.5-5.0) g/dL Lipase 8 (8-78) U/L Radiology Impression Discussion of test interpretation with radiology: I have reviewed the radiologist's reading. Independent Historian Clinical information obtained from an independent historian. History obtained from or confirmed by: Spouse Prescription Management I considered prescription management with: Antibiotic Discharge Plan Discharge Clinical Impression: Cellulitis Patient Disposition: Home, Self-Care Instructions: Cellulitis (ED) Additional Instructions: If you develop fever chills. Redness goes way beyond the margin demarcated. Please come back to the ED. Prescriptions: New doxycycline monohydrate 100 mg capsule 100 mg PO BID Qty: 20 0RF No Action cephalexin [Keflex] 500 mg capsule 500 mg PO TID 7 Days Qty: 21 0RF doxycycline hyclate 100 mg capsule 100 mg PO BID 7 Days Qty: 14 0RF ibuprofen 600 mg tablet 600 mg PO Q6H PRN (Reason: pain) Qty: 20 0RF cephalexin [Keflex] 500 mg capsule 500 mg PO QID 7 Days Qty: 28 0RF oxycodone-acetaminophen [Percocet] 5-325 mg tablet 1 tab PO Q6H PRN (Reason: pain) Qty: 10 0RF Rx Instructions: Narcotic may cause drowsiness, no driving for 6 hours after taking, home use only amoxicillin-pot clavulanate [Augmentin] 875-125 mg tablet 1 tab PO BID Qty: 20 0RF ibuprofen 600 mg tablet 600 mg PO Q6H PRN (Reason: pain) Qty: 20 0RF amoxicillin-pot clavulanate [Augmentin] 875-125 mg tablet 1 tab PO BID 4 Days Qty: 8 0RF cephalexin 500 mg capsule 500 mg PO Q6H 7 Days Qty: 28 0RF doxycycline monohydrate 100 mg capsule 100 mg PO BID Qty: 14 0RF erythromycin 5 mg/gram (0.5 %) ointment 0.5 inch ophthalmic (eye) QID 7 Days Qty: 3.5 0RF Referrals: Physician,Alex J [Primary Care Provider] - 12/20/24 Print Language: Ghanaian
[2024-12-16 22:32] LABS: Appearance Urine Cloudy; Color Urine Dark Yellow; Glucose Urine UA Negative (Negative); Leukocyte Esterase Urine Moderate (2+) (Negative); Nitrite Urine Negative (Negative); Specific Gravity - Urine >= 1.030 (1.005-1.025); UMIC TRIGGER UACC YES; Urine Blood Negative (Negative); Urine Ketones 15 mg/dL (Negative); Urine Protein 30 (1+) mg/dL (Neg-Trace)
[2024-12-16] MEDS: Doxycycline Monohydrate 100 MG CAPSULE PO (22:34)
[2024-12-16 22:43] LABS: Bacteria Urine None Seen (None Seen); Hyaline Casts Urine 0-2 /LPF (0-2); RBC Urine 0-2 /HPF (0-2); Squamous Epithelial Cell Urine 0-2 /HPF (0-2); UACC Culture Trigger YES; WBC Urine >50 /HPF (0-5)
[2024-12-16 23:40] VITALS: BP 121/71; PULSE 88; RESP 20; TEMP 36.8; O2SAT 98
[2024-12-16] MEDS: cephALEXin 500 MG CAPSULE PO (23:51)
[2024-12-16] MEDS: Sulfamethox/Trimeth 800/160 TABLET 1 TAB PO (23:51)
[2024-12-16 23:57] VITALS: BP 121/71; PULSE 88; RESP 20; TEMP 36.8; O2SAT 98
--- NOTE | 2024-12-17 00:02 | PC.NURSE ---
demarcation line to LLE. no weeping appreciated. gait steady. no change in mental status.
== END 2024-12-17 00:05 | disposition home or self-care (01) ==
PROVIDERS: Physician Assistant; Emergency Provider Emergency Medicine Emergency Medical Services
DX: L03.115 Cellulitis of right lower limb (principal); N39.0 Urinary tract infection, site not specified; R07.9 Chest pain, unspecified; M79.662 Pain in left lower leg
CPT/HCPCS: 36415; 80053; 81001; 83605; 83690; 85025; 85610; 87040; 87086; 93005; 93971; 99284

== ENCOUNTER → 2024-12-16 20:15 | Outpatient (BNV) | payer OTHER, SELFPAY | PROVIDERS: Emergency Provider Emergency Medicine Emergency Medical Services; Visit Provider Internal Medicine Cardiovascular Disease | DX: I49.3 Ventricular premature depolarization (principal); R00.0 Tachycardia, unspecified | CPT/HCPCS: 93010 ==